=== PATIENT | male | born 1995 | race African-American/Black ===

== ENCOUNTER 2020-12-20 15:25 | Emergency (ER) | payer BC ==
[~2020-12-20] VITALS: Ht 188 cm; Wt 84.0 kg
[2020-12-20] MEDS ORDERED: IBUP-2028 MT (18:01)
[2020-12-20] MEDS ORDERED: ONDA4TAB5 MT (18:01)
[2020-12-20 18:25] VITALS: BP 124/63
== END 2020-12-20 18:25 | disposition home or self-care (01) ==
LOC: ER 15:25
DX: S09.8XXA Other specified injuries of head, initial encounter (principal); S16.1XXA Strain of muscle, fascia and tendon at neck level, initial encounter; F17.200 Nicotine dependence, unspecified, uncomplicated; Y08.89XA Assault by other specified means, initial encounter; Y93.89 Activity, other specified; Y92.9 Unspecified place or not applicable; Z71.6 Tobacco abuse counseling
CPT/HCPCS: 93005; 99285; 99406

== ENCOUNTER 2021-02-01 03:45 | Emergency (ER) | payer BC, OTHER ==
[~2021-02-01 03:45] MED LIST: IBUP-2028 MT; ONDA4TAB5 MT
== END 2021-02-01 05:28 | disposition left against medical advice (07) ==
LOC: ER 03:45
DX: Z53.21 Procedure and treatment not carried out due to patient leaving prior to being seen by health care provider (principal)

== ENCOUNTER 2021-02-10 13:04 | Emergency (ER) | payer BC ==
[~2021-02-10] VITALS: Ht 188 cm; Wt 82.0 kg
[2021-02-10 13:38] VITALS: BP 114/64
== END 2021-02-10 16:00 | disposition home or self-care (01) ==
LOC: ER 13:15
DX: S93.492A Sprain of other ligament of left ankle, initial encounter (principal); X50.1XXA Overexertion from prolonged static or awkward postures, initial encounter; Y93.89 Activity, other specified; Y92.89 Other specified places as the place of occurrence of the external cause; Y99.8 Other external cause status; Z90.49 Acquired absence of other specified parts of digestive tract
CPT/HCPCS: 73610; 99283